=== PATIENT | male | born 1960 | race Two or more races ===

== ENCOUNTER 2019-12-02 08:44 | Emergency (ER) | payer MEDICAID, OTHER ==
[~2019-12-02] VITALS: Ht 167.6 cm; Wt 81.6 kg
[2019-12-02 09:12] VITALS: BP 149/92
[2019-12-02] MEDS ORDERED: cefTRIAXone SOD 1,000 MG VL IM ONE (09:45)
== END 2019-12-02 09:50 | disposition home or self-care (01) ==
LOC: ER 08:44
DX: J03.90 Acute tonsillitis, unspecified (principal); J20.9 Acute bronchitis, unspecified; I10 Essential (primary) hypertension
CPT/HCPCS: 71046; 96372; 99283; J0696